=== PATIENT | male | born 1970 | race Caucasian/White ===

== ENCOUNTER → 2021-06-24 | Day surgery (SDC) | payer OTHER ==
[2021-06-24 14:45] VITALS: BP 127/98
== END | disposition home or self-care (01) ==
LOC: SURG 14:34
PROVIDERS: ATTEND Anesthesiology
DX: M16.12 Unilateral primary osteoarthritis, left hip (principal); F17.210 Nicotine dependence, cigarettes, uncomplicated; Z79.899 Other long term (current) drug therapy; Z98.890 Other specified postprocedural states
CPT/HCPCS: 99203; G0463

== ENCOUNTER → 2021-07-28 | Day surgery (SDC) | payer OTHER ==
[~2021-07-28] MED LIST: BUPIVACAINE MPF 0.25% 10 ML VIAL. ONE; IOHEXOL 300 MG/ML 50 ML VIAL. ONE; LIDOCAINE 1% PF 30 ML VIAL. ONE; methylPREDNISolone ACETATE 40 MG/ML VIAL. ONE
[2021-07-28 13:21] VITALS: BP 130/73
== END | disposition home or self-care (01) ==
LOC: SURG 12:07
PROVIDERS: ATTEND Anesthesiology
DX: M16.12 Unilateral primary osteoarthritis, left hip (principal); F17.210 Nicotine dependence, cigarettes, uncomplicated; Z98.890 Other specified postprocedural states; Z79.899 Other long term (current) drug therapy
CPT/HCPCS: 20610; 77002; A4209; A4657; J1030; J3490; Q9967